=== PATIENT | female | born 1970 | race Caucasian/White ===

== ENCOUNTER → 2017-04-04 | Outpatient (CLI) | payer BC ==
[~2017-04-04] MED LIST: ALBU8.5H6 IH; BUPR300T3 PO; FLUT1DIS3 IH; LEXAPRO10 MG PO; LORA10TA55 PO
--- NOTE | 2017-04-04 16:19 | RAD ---
Abdomen, 2 views, 04/04/2017: History: Right lower quadrant pain The abdominal gas pattern is unremarkable without evidence of obstruction. No free air is seen in the abdomen. Surgical clips are present in the right upper quadrant. Lower pelvic calcifications are compatible with phleboliths. Several faint right paraspinous calcifications are also probably phleboliths. There is no evidence of organomegaly. There is a mild thoracolumbar scoliosis with associated multilevel degenerative change. IMPRESSION: No acute abdominal abnormality is detected.
== END | disposition home or self-care (01) ==
LOC: DXRADRC 15:59
PROVIDERS: ATTEND Physician Assistant
DX: R10.31 Right lower quadrant pain (principal); R19.7 Diarrhea, unspecified
CPT/HCPCS: 74020

== ENCOUNTER → 2017-04-06 | Outpatient (CLI) | payer BC ==
[~2017-04-06] MED LIST changes: +IOHEXOL 240 MG/ML 50ML VIAL. ONE
[2017-04-06] MEDS: IOHEXOL 300 MG/ML 75 ML VIAL. IV ONE (13:43)
[2017-04-06] MEDS: IOHEXOL 240 MG/ML 50ML VIAL. PO ONE (13:44)
--- NOTE | 2017-04-06 14:37 | RAD ---
CT abdomen and pelvis with contrast 04/06/2017. Clinical indication: Generalized abdominal pain for one week. History of cholecystectomy and hysterectomy. Comparison: CT September 21, 2014. Technique: CT helical acquisition of the abdomen and pelvis was obtained following uneventful intravenous menstruation of 75 mL Omnipaque 300. Coronal and sagittal reformations were obtained. PQRS Compliance Statement: One or more of the following individualized dose reduction techniques were utilized for this examination: 1. Automated exposure control 2. Adjustment of the mA and/or kV according to patient size 3. Use of iterative reconstruction technique Findings: Abdomen and pelvis: Heart size and lung bases are within normal limits. Liver, spleen, adrenal glands, pancreas and kidneys are within normal limits. Prior cholecystectomy. No intra or extrahepatic bile or ductal dilatation. Abdominal aorta is normal in caliber. Major portal, splenic and visualized upper superior mesenteric veins are widely patent. No retroperitoneal or mesenteric lymphadenopathy. No abdominal free fluid. Small and large bowel loops are normal in caliber without obstruction. Appendix normal in appearance. Mildly distended and unopacified urinary bladder within normal limits. Prior hysterectomy with the vaginal cuff within normal limits. There are no destructive osseous lesions. Impression: No CT etiology to account for patient's generalized abdominal pain.
== END | disposition home or self-care (01) ==
LOC: CT 12:40
PROVIDERS: ATTEND Physician Assistant
DX: R10.31 Right lower quadrant pain (principal); Z90.49 Acquired absence of other specified parts of digestive tract
CPT/HCPCS: 74177; Q9966; Q9967

== ENCOUNTER → 2017-06-29 | Outpatient (CLI) | payer BC ==
[~2017-06-29] MED LIST changes: -IOHEXOL 240 MG/ML 50ML VIAL. ONE
--- NOTE | 2017-06-29 11:40 | RAD ---
Double-contrast upper GI series: UPPER GI SERIES WITH SMALL BOWEL FOLLOW-THROUGH Clinical indications: Right-sided abdominal pain since March 2017 worse in the right lower quadrant.. Previous surgeries include cholecystectomy and hysterectomy. Findings: A fluoroscopic double-contrast upper GI series was performed using effervescent granules and thick liquid barium and thin liquid barium in the upright and recumbent positions. Swallowing appears normal and no laryngeal penetration is seen. No esophageal stricture is seen. No esophageal mucosal fold thickening is evident. A normal primary peristaltic wave is seen propagating the contrast bolus down the esophagus and into the stomach in the recumbent position. A small hiatal hernia and mild gastroesophageal reflux is seen in the recumbent position. The stomach is distensible and exhibits peristalsis and no gastric outlet obstruction is seen. No mucosal fold thickening or ulceration is evident radiographically. The duodenal bulb and C-loop appear normal. The ligament of Treitz is in normal position. No mucosal fold thickening or ulceration of the duodenum is seen radiographically. The patient drank another 8 ounce glass of thin liquid barium and a small bowel follow-through is performed. Fluoroscopic evaluation of the small bowel is performed as soon as the contrast reaches the colon. Contrast reaches the colon x 40 minutes. No distortion or dilatation or displacement of small bowel loops is seen. No mucosal thickening is seen. Evaluation of the area of pain as indicated by the patient in the right lower quadrant of the abdomen is performed . No focal radiographic abnormality is seen here. The terminal ileum is distensible and appears normal. Total fluoroscopic time: 3 minutes. Total fluoroscopic spot views: 30. IMPRESSION: Small hiatal hernia and mild gastroesophageal reflux. The rest of the upper GI series and small bowel follow-through is normal.
== END | disposition home or self-care (01) ==
LOC: DXRAD 08:08
PROVIDERS: ATTEND Internal Medicine Gastroenterology
DX: K44.9 Diaphragmatic hernia without obstruction or gangrene (principal); K21.9 Gastro-esophageal reflux disease without esophagitis; R19.7 Diarrhea, unspecified
CPT/HCPCS: 74249

== ENCOUNTER → 2017-07-25 | Outpatient (CLI) | payer BC ==
--- NOTE | 2017-07-25 12:21 | RAD ---
Radionuclide Meckel scan, 07/24/2017: History: Chronic lower abdominal pain Imaging of the abdomen was performed following IV injection of 6.6 mCi of technetium 99m pertechnetate. No abnormal accumulation of activity is seen in the abdomen or pelvis. IMPRESSION: Negative Meckel's scan.
== END | disposition home or self-care (01) ==
LOC: NM 07:41
PROVIDERS: ATTEND Internal Medicine Gastroenterology
DX: R10.31 Right lower quadrant pain (principal); R19.7 Diarrhea, unspecified; Z90.49 Acquired absence of other specified parts of digestive tract
CPT/HCPCS: 78290; 96374; A9512

== ENCOUNTER → 2020-03-19 | Outpatient (CLI) | payer BC ==
[2020-03-19 09:10] LABS: BASO # 0.1 x10^3/uL (0.0-0.2); BASO % 1 % (0-3); EOS # 0.2 x10^3/uL (0.0-0.7); EOS % 5 % (0-3); HEMATOCRIT 44.1 % (36.0-47.0); HEMOGLOBIN 14.9 g/dL (12.0-15.5); LYMPH # 1.7 x10^3/uL (1.0-4.8); LYMPH % 37 % (24-48); MEAN CORPUSCULAR HEMOGLOBIN 31 pg (25-35); MEAN CORPUSCULAR HGB CONC 34 g/dL (31-37); MEAN CORPUSCULAR VOLUME 91 fL (79-100); MONO # 0.3 x10^3/uL (0.0-1.1); MONO % 7 % (0-9); NEUT # 2.2 x10^3uL (1.8-7.7); NEUT % 50 % (31-73); PLATELET COUNT 302 x10^3/uL (140-400); RED BLOOD COUNT 4.86 x10^6/uL (3.50-5.40); RED CELL DISTRIBUTION WIDTH 13.9 % (11.5-14.5); WHITE BLOOD COUNT 4.5 x10^3/uL (4.0-11.0)
--- NOTE | 2020-03-19 09:12 | RAD ---
EXAM: Abdomen, 2 views. HISTORY: Pain. COMPARISON: 04/06/2017. FINDINGS: Frontal upright and supine views of abdomen are obtained. There is gas and stool within the colon. There are nonspecific air-filled loops of bowel within the abdomen. There are surgical anastomoses within the left upper quadrant. There are cholecystectomy clips. There are pelvic phleboliths. There is thoracolumbar scoliosis. IMPRESSION: Nonobstructive bowel gas pattern. Electronically signed by: Mary Florian MD (03/19/2020 9:10 AM) [id number]
[2020-03-19 09:18] LABS: ALBUMIN 4.2 g/dL (3.4-5.0); ALBUMIN/GLOBULIN RATIO 1.1 (1.0-1.7); ALK PHOS 140 U/L (46-116); ALT (SGPT) 28 U/L (14-59); AMYLASE 31 U/L (25-115); ANION GAP 6 (6-14); AST (SGOT) 24 U/L (15-37); BLOOD UREA NITROGEN 12 mg/dL (7-20); BUN/CREATININE RATIO 13 (6-20); C REACTIVE PROTEIN < 0.5 mg/L (0-3.3); CALCIUM 9.1 mg/dL (8.5-10.1); CARBON DIOXIDE 32 mmol/L (21-32); CHLORIDE 101 mmol/L (98-107); CREATININE 0.9 mg/dL (0.6-1.0); GFR 67.1; GLUCOSE 106 mg/dL (70-99); LIPASE 105 U/L (73-393); SODIUM 139 mmol/L (136-145); TOTAL BILIRUBIN 0.5 mg/dL (0.2-1.0); TOTAL PROTEIN 8.2 g/dL (6.4-8.2)
[2020-03-19 09:23] LABS: BACTERIA,URINE 0 /HPF (0-FEW); BILIRUBIN,URINE NEG (NEG); CLARITY,URINE CLEAR; COLOR,URINE YELLOW; GLUCOSE,URINE NEG (NEG); NITRITE,URINE NEG (NEG); RBC,URINE OCC /HPF (0-2); SQUAMOUS EPITHELIAL CELL,UR FEW /LPF; UROBILINOGEN,URINE 0.2 mg/dL (0.2 mg/dL)
== END | disposition home or self-care (01) ==
LOC: PMG 08:29
PROVIDERS: ATTEND Physician Assistant
DX: R11.0 Nausea (principal); R10.13 Epigastric pain; I87.8 Other specified disorders of veins; M41.85 Other forms of scoliosis, thoracolumbar region; E03.9 Hypothyroidism, unspecified
CPT/HCPCS: 36415; 74019; 80053; 81001; 82150; 83690; 85025; 86140; 87086

== ENCOUNTER → 2020-07-14 | Outpatient (CLI) | payer BC ==
[~2020-07-14] MED LIST changes: +IOHEXOL 240 MG/ML 50ML VIAL. ONE
[2020-07-14] MEDS: IOHEXOL 240 MG/ML 50ML VIAL. PO ONE (09:58)
[2020-07-14] MEDS: IOHEXOL 300 MG/ML 75 ML VIAL. IV ONE (09:59)
--- NOTE | 2020-07-14 10:26 | RAD ---
EXAM: Abdomen and pelvis CT with intravenous contrast. HISTORY: Right-sided pain. TECHNIQUE: Computed tomographic images of the abdomen and pelvis were obtained following the administration of intravenous contrast. Multiplanar reformatting was performed. *One or more of the following individualized dose reduction techniques were utilized for this examination: 1. Automated exposure control. 2. Adjustment of the mA and/or kV according to patient size. 3. Use of iterative reconstruction technique. COMPARISON: 04/06/2017. FINDINGS: Evaluation of the lower thorax demonstrates no infiltrate or pleural effusion. There is a 4 mm pleural-based nodule within the medial right lower lobe, benign in appearance. The heart is normal in size. There are postoperative changes involving the stomach. There is intrahepatic and extra hepatic biliary ductal dilatation, possibly due to reservoir effect status post cholecystectomy. The pancreas, spleen, adrenal glands and kidneys are unremarkable. There is no appendicitis. There is no bowel obstruction. The aorta is normal in caliber. There is no lymphadenopathy. The uterus is absent. There is no suspicious osseous lesion. There are few benign bone islands. The largest of these is seen within the posterior inferior aspect of T8. IMPRESSION: 1. Biliary ductal dilatation, likely due to reservoir effect status post cholecystomy. MRCP may be useful if there is concern for an occult obstructing etiology. 2. No convincing acute abdominal or pelvic finding. Electronically signed by: Mary Florian MD (07/14/2020 10:23 AM) [id number]
== END ==
LOC: CT 08:48
PROVIDERS: ATTEND Physician Assistant Medical
DX: R10.10 Upper abdominal pain, unspecified (principal); Z90.710 Acquired absence of both cervix and uterus; Z90.49 Acquired absence of other specified parts of digestive tract
CPT/HCPCS: 74177; Q9966; Q9967

== ENCOUNTER → 2021-06-17 | Outpatient (CLI) | payer BC ==
[~2021-06-17] MED LIST changes: -IOHEXOL 240 MG/ML 50ML VIAL. ONE; +LORA-52 PO; -LORA10TA55 PO
--- NOTE | 2021-06-17 09:08 | RAD ---
EXAM: Bilateral digital screening mammogram with tomosynthesis. HISTORY: 50-year-old female presents for screening mammography. TECHNIQUE: Full-field digital craniocaudal and mediolateral oblique 2D and 3D tomosynthesis images of both breasts are obtained for evaluation. Computer aided detection was applied. COMPARISON: 12/18/2014 BREAST PARENCHYMAL DENSITY: Level A - Mostly fat FINDINGS: There is no new suspicious mass, microcalcification or region of architectural distortion. There is a stable small benign asymmetry within the 8:00 position of the right breast at mid depth. T here are new tiny circumscribed nodular densities with slight peripheral calcification within the ant erior right breast, the mammographic appearance of which favors benign oil cysts. There are a few sca ttered benign calcifications. IMPRESSION: BI-RADS Category 2: Benign finding(s). RECOMMENDATION: Annual mammography is recommended. If your mammogram demonstrates that you have dense breast tissue, which could hide abnormalities, and if you have other risk factors for breast cancer that have been identified, you might benefit from s upplemental screening tests that may be suggested by your ordering physician. Dense breast tissue, i n and of itself, is a relatively common condition. This information is not provided to cause undue c oncern, but rather to raise your awareness and to promote discussion with your physician regarding th e presence of other risk factors, in addition to dense breast tissue. A report of your mammography re sults will be sent to you and your physician. You should contact your physician if you have any ques tions or concerns regarding this report. Mammography is a sensitive method for finding small breast cancers, but it does not detect them all a nd is not a substitute for careful clinical examination. A negative mammogram does not negate a clin ically suspicious finding and should not result in delay in biopsying a clinically suspicious abnorma lity. PQRS compliance statement - Patient information was entered into a reminder system with a target due date for the next mammogram. "Our facility is accredited by the [employer] Mammography [employer]." Electronically signed by: Mary Florian MD (06/17/2021 9:06 AM) [id number]
== END ==
LOC: MAMMO 07:52
PROVIDERS: ATTEND Physician Assistant Medical
DX: Z12.31 Encounter for screening mammogram for malignant neoplasm of breast (principal)
CPT/HCPCS: 77063; 77067